=== PATIENT | female | born 2000 | race Caucasian/White ===

== ENCOUNTER 2023-05-27 20:51 | Emergency (ER) | payer BC, OTHER, SELFPAY ==
[2023-05-27 20:51] VITALS: BMI 29.9
[2023-05-27 21:01] VITALS: BP 130/74
[2023-05-27 21:15] LABS: % Basophils 0.6 % (0-2); % Eosinophils 1.9 % (0-6); % Immature Granulocytes 0.3 % (0-0.5); % Monocytes 9.2 % (1.7-9.3); Absolute Eosinophils 0.1 10^3/uL (0-0.7); Absolute Lymphocytes 2.3 10^3/uL (1.2-3.4); Absolute Monocytes 0.6 10^3/uL (0.1-0.6); Absolute Neutrophils 3.3 10^3/uL (1.4-6.5); Hematocrit 40.1 % (37.0-47.0); Hemoglobin 14.3 g/dL (12.0-16.0); Mean Corp Hgb Conc. 35.7 g/dL (33.0-37.0); Mean Corpuscular Hgb 29.9 pg (27.0-31.0); Mean Corpuscular Volume 83.9 fL (81.0-99.0); Mean Platelet Volume 9.8 fL (7.4-10.4); Nucleated Red Blood Cells % 0 %; Platelet Count 325 10^3/uL (130-400); Red Blood Cell Count 4.78 10^6/uL (4.20-5.40); Red Cell Dist. Width 12.5 % (11.5-14.5); White Blood Cell Count 6.4 10^3/uL (4.8-10.8)
[2023-05-27 21:30] LABS: HCG, Serum Qualitative Screen Negative
[2023-05-27 21:33] LABS: ALT (SGPT) 19 U/L (0-35); AST (SGOT) 20 U/L (14-36); Albumin 4.9 g/dl (3.5-5.0); Alkaline Phosphatase 88 U/L (38-126); Blood Urea Nitrogen 16 mg/dl (7-17); Carbon Dioxide 26 mmol/L (22-30); Chloride 104 mmol/L (98-107); Glucose 158 mg/dl (70-99); Lipase 63 U/L (23-300); Potassium 4.7 mmol/L (3.5-5.1); Sodium 136 mmol/L (135-145); Total Bilirubin 0.6 mg/dl (0.2-1.3); Total Protein 7.7 g/dl (6.3-8.2); eGFR > 60.00
--- NOTE | 2023-05-28 00:22 | ED.GENMED ---
History of Present Illness
General
Chief Complaint: Abdominal Pain
Source: patient
Exam Limitations: none
Time Seen by Provider: 05/28/23 00:09
Travel History
Have you had any contact with someone who has COVID-19?: No
Do you have any symptoms of coronavirus? Fever > 100 degrees, chills, cough, shortness of breath, sore throat, loss of taste or smell, muscle aches, or headache?: No
History of Present Illness
History of Present Illness:
This is a 22 year old female that comes in with c/o right upper abd pain. States that for the past few days she had pain up under the ribs on the right. States that she went to [facility] tonight and they were told to come to the ER. State that
the pain comes and goes and she also has right sided chest pain. Sate that when she takes a deep breath or when she stands she has pain. Denies any fever, chills, SOB, abd pain, nausea, vomiting, diarrhea, headache, dizziness, urinary burning.
Past History
Past History
ED Past Medical History: Asthma, IDDM and Other (Migraines, Celiac disease)
ED Past Surgical History: None
Social History
Tobacco: Non-smoker
Alcohol: Occasional
Personal: Single
Living: other (College)
Review of Systems
Review of Systems
All Other Systems: ROS reviewed and negative except as documented in HPI and ROS
Constitutional: Reports no symptoms; Denies fever or chills
EENT: Reports no symptoms
Respiratory: Denies cough or trouble breathing
Cardiac: Reports chest pain (right sided)
ABD/GI: Reports abdominal pain (Right Upper quadrant); Denies nausea, vomiting or diarrhea
: Reports no symptoms; Denies dysuria, frequency or urgency
Musculoskeletal: Reports no symptoms
Skin: Reports no symptoms
Neurological: Reports no symptoms; Denies dizzy or headache
Psychiatric: Reports no symptoms
Phy Exam
General Physical Exam
General Presentation: well appearing and no apparent distress
General age: appears stated age
General Skin: warm and dry
General Habitus: normal
General Mental: alert
General Hydration: appears well hydrated
ENT Exam
ENT Exam: TM's normal, pharynx normal and neck supple
Eye Exam
Eye Exam: EOMI
Cardiovascular Exam
Cardiovascular Exam: regular rate/rhythm, no edema, no murmur and normal peripheral pulses
Pulmonary Exam
Pulmonary Exam: lungs clear, no respiratory distress, no rales, chest non tender, no crackles, no rhonchi, no wheezing and no cough
Gastrointestinal Exam
Gastrointestinal Exam: normal bowel sounds, soft, no organomegaly, no pulsatile mass, non distended and tender (Slight RUQ tenderness with palpation)
Musculoskeletal Exam
Musculoskeletal Exam: full ROM and no edema
Skin Exam
Skin Exam: normal color, warm/dry, no rash and no petechia
Psychiatric Exam
Psychiatric Exam: normal mood/affect
Course
Orders/Labs/Results
Orders:
Orders
05/27/23 21:05
Test Result ONCE
05/27/23 21:08
CMP [Comprehensive Metabolic Panel] Urgent
Complete Blood Count/With Diff Urgent
HCG, Serum Qualitative Screen Urgent
Lipase Urgent
05/28/23 00:22
US Abdomen Complete/Upper Urgent
Comment:
Reason For Exam: Right upper abd pain
05/28/23 00:30
Electrocardiogram (*1) Urgent
Reason for Study: Chest Pain
EKG- Treatment ONCE
05/28/23 00:42
D-Dimer Urgent
05/28/23 01:47
CR Chest - 2 Views Urgent
Comment:
Reason For Exam: Right sided chest pain
Abnormal Lab Results
05/27/23
21:08
Glucose 158 H mg/dl
(70-99)
05/27/23 21:08
05/27/23 21:08
Glucose nonfasting (patient is a diabetic), HCG negative. D-dimer o.34, Lipase normal at 63.
Vital Signs
Initial and Last Documented VS:
Initial Vital Signs
Temp Pulse Resp BP Pulse Ox
98.1 F 72 20 130/74 100
05/27/23 21:01 05/27/23 21:01 05/27/23 21:01 05/27/23 21:01 05/27/23 21:01
Last Documented Vital Signs
Temp Pulse Resp BP Pulse Ox
98.1 F 72 20 110/71 100
05/27/23 21:01 05/27/23 21:01 05/27/23 21:01 05/28/23 01:24 05/27/23 21:01
MDM/Problems Addressed
Differential Diagnosis Includes:
Gallbladder disease, PE
MDM/Problems Addressed:
This is a 22 year old female that comes in with c/o RUQ quadrant pain and right sided chest pain. States that this started a few days ago and it comes and goes. States that she has pain with deep breathing or standiing.
Will get labs, US
Back into see patient. Explained that her blood work is normal and her Ultrasound is also normal. D-dimer is negative. Will get a Chest x-ray to r/o any Pneumonia. Explained to patient that at this time everything else is normal. Will discharge home
of chest X-ray normal.
Chronic conditions affecting care: DM
Acute Exacerbation and/or Progression of Chronic Illness:
NA
*Radiology
Radiology exam reviewed: preliminary read by ED provider (Chest= negative for active disease. ) and radiology read reviewed (US- NO Sonographic evidence of cholelithiasis or acute cholecystitis. Common bile duct measures 3 mm. Unremarkable
sonographic appearance of the liver, bilateral kidneys, spleen and visualized pancreas. )
*Pulse Oximetry
Patient hypoxic: no
*Applications Specialist Interpretation
Rate: Applications Specialist- N/A
*Critical Care Note
Total Time (30-74mins, 75-104mins- exclusive of procedures): Not Applicable
ED Attending Note
-
Portions of this chart may have been created with voice recognition software.� Occasional wrong word or��sound alike� substitutions may have occurred due to the inherent limitations of voice recognition software.
Discharge Plan
Departure
Patient Disposition: Home (Routine Discharge)
Date of Disposition: 05/28/23
Time of Disposition: 02:30
Patient with high blood pressure during this ER visit?: No
Condition: Good
Covid-19: Not Applicable
Discharge Problem:
Abdominal pain, right upper quadrant
Instructions: Abdominal Pain
Referrals:
Yoon Gonzalez CRNP [Family Provider] - Call in 1-3 days for appt
Activity Restrictions/Additional Instructions:
As discussed, your blood work shows that your blood sugar is 156. Your Lipase is normal along with your D-dimer. Your Chest X-ray is normal along with the Ultrasound. You may use Tylenol or Ibuprofen for pain. Follow up with the family doctor. IF
YOU HAVE INCREASED OR CHANGING PAIN, OR YOU HAVE ANY OTHER CONCERNS PLEASE RETURN TO THE EMERGENCY ROOM.
Interventions
Interventions:
*Risk Screen - Suicide Last Done: 05/27/23 21:01
*General Assessment Last Done: 05/28/23 00:59
*Neglect/Abuse Screening Last Done: 05/27/23 21:01
ED- Fall Risk Assessment Last Done: 05/28/23 00:59
KK-Trupal-Fvpfssjrmg Assessment Last Done: 05/28/23 00:59
[2023-05-28 00:59] LABS: D-Dimer 0.34 ug/mlFEU (0.00-0.50)
[2023-05-28 01:24] VITALS: BP 110/71
[2023-05-28 02:36] VITALS: BP 110/71
== END 2023-05-28 02:37 | disposition home or self-care (01) ==
LOC: EMR 20:51
PROVIDERS: Clinical Nurse Specialist Family Health; Emergency Medicine; EMERGENCY PHYSICIAN Student in an Organized Health Care Education/Training Program; FAMILY PHYSICIAN Nurse Practitioner Family
DX: R10.11 Right upper quadrant pain (principal); R07.89 Other chest pain; J45.909 Unspecified asthma, uncomplicated; E11.9 Type 2 diabetes mellitus without complications; K90.0 Celiac disease
CPT/HCPCS: 99284; 71046; 76700; 80053; 83690; 84703; 85025; 85379